=== PATIENT | male | born 1970 | race Caucasian/White ===

== ENCOUNTER 2020-07-16 23:05 | Emergency (ER) | payer BC ==
[2020-07-17 00:08] LABS: #Eosinphils 0.1 10x3/uL (0.0-0.5); #Monocytes 1.2 10x3/uL (0.0-1.1); #Neutrophils 9.3 10x3/uL (1.5-8.4); %Basophils 0.2 % (0.0-2.0); %Eosinophils 0.4 % (0.0-6.0); %Lymphocytes 15.9 % (18.0-47.0); %Monocytes 9.3 % (0.0-10.0); %Neutrophils 72.9 % (40.0-75.0); Hemoglobin 15.6 g/dL (13.5-17.5); Mean Corpuscular HGB CONC 34.8 g/dL (32.0-36.0); Mean Corpuscular Hemoglobin 29.8 pg (27.0-33.0); Mean Corpuscular Volume 85.7 fl (81.2-95.1); Mean Platelet Volume 9.7 fl (7.4-10.4); Platelet Count 310 10x3/uL (150-450); RBC Distribution Width 12.6 % (11.5-14.5); Red Blood Cell (RBC) Count 5.23 10x6/uL (4.32-5.72); White Blood Cell (WBC) Count 12.7 10x3/uL (3.5-10.5)
[2020-07-17 00:25] LABS: ALT (SGPT) 31 U/L (8-55); AST (SGOT) 22 U/L (5-34); Albumin 4.6 g/dL (3.5-5.0); Alkaline Phosphatase 94 U/L (40-110); Anion Gap 16 mmol/L (10-20); BUN (Urea Nitrogen) 16 mg/dL (8.4-25.7); Bilirubin, Total 0.3 mg/dL (0.2-1.2); Calc. Creatinine Clearance 0 mL/min (70-130); Calcium 9.7 mg/dL (7.8-10.44); Carbon Dioxide 24 mmol/L (22-29); Chloride 100 mmol/L (98-107); Globulin 3.4 g/dL (2.4-3.5); Glucose 111 mg/dL (70-105); Potassium 3.1 mmol/L (3.5-5.1); Sodium 137 mmol/L (136-145)
== END 2020-07-17 01:12 | disposition home or self-care (01) ==
LOC: CSHERS 23:05
DX: R00.2 Palpitations (principal); E78.5 Hyperlipidemia, unspecified; E78.00 Pure hypercholesterolemia, unspecified; I10 Essential (primary) hypertension; Z79.899 Other long term (current) drug therapy
CPT/HCPCS: 71045; 80053; 84443; 85025; 93005